=== PATIENT | male | born 1945 | race Caucasian/White ===

== ENCOUNTER 2016-12-28 12:34 | Outpatient (CLI) | payer MEDICARE | END 2016-12-28 12:35 | disposition home or self-care (01) | DX: E78.5 Hyperlipidemia, unspecified (principal); I10 Essential (primary) hypertension; M47.896 Other spondylosis, lumbar region ==

== ENCOUNTER 2017-10-08 14:09 | Outpatient (CLI) | payer MEDICARE, OTHER ==
--- NOTE | 2017-10-09 09:20 | XRAY Report ---
EXAM: THORACIC SPINE RADIOGRAPHY EXAM DATE: 10/08/2017 03:14 PM. CLINICAL HISTORY: BACK PAIN, LUMBAR THORACIC REGION. Chronic, increasing pain for several months. No known trauma. COMPARISON: No thoracic x-ray comparison. Abdomen pelvis CT 12/09/2012. TECHNIQUE: 2 views. FINDINGS: Alignment: Dextroconvexity curvature centered at T12-L2, without significant change. Bones: No fractures or bone lesions. Vertebral body heights are well-maintained. Disks: Minimal vertebral body spurring and very mild disk space narrowing within the mid thoracic spi ne. Soft Tissues: Right upper quadrant abdominal surgical clips.. The visualized lungs and cardiomediasti nal silhouette are normal. IMPRESSION: 1. No acute abnormality. 2. Minimal degenerative disease. 3. 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 [facility] Referring Provider Line: [phone] SITE ID: [id number]
== END 2017-10-08 14:10 | disposition home or self-care (01) ==
LOC: DI 14:09
PROVIDERS: ATTEND Family Medicine
DX: M54.5 Low back pain (principal); M54.6 Pain in thoracic spine
CPT/HCPCS: 72070

== ENCOUNTER 2018-05-20 08:00 | Outpatient (CLI) | payer MEDICARE, OTHER | END 2018-05-20 08:01 | LOC: LAB.WCP 08:00 | PROVIDERS: ATTEND Family Medicine | DX: K52.9 Noninfective gastroenteritis and colitis, unspecified (principal) | CPT/HCPCS: 83630; 87045; 87046 ==

== ENCOUNTER 2018-06-03 08:00 | Outpatient (CLI) | payer MEDICARE, OTHER | END 2018-06-03 08:01 | LOC: LAB.WCP 08:00 | PROVIDERS: ATTEND Family Medicine | DX: K52.9 Noninfective gastroenteritis and colitis, unspecified (principal) | CPT/HCPCS: 81599; 87045; 87046; 87493 ==

== ENCOUNTER 2019-07-11 07:00 | Outpatient (CLI) | payer MEDICARE, OTHER | END 2019-07-11 23:59 | disposition home or self-care (01) | LOC: LAB.R 07:00 | PROVIDERS: ATTEND Family Medicine | DX: Z79.891 Long term (current) use of opiate analgesic (principal) | CPT/HCPCS: 80361; 80374; 81599 ==

== ENCOUNTER 2024-02-20 08:00 | Outpatient (CLI) | payer MEDICARE, OTHER | END 2024-02-20 23:59 | disposition home or self-care (01) | LOC: LAB.R 08:00 | PROVIDERS: ATTEND Family Medicine | DX: R19.7 Diarrhea, unspecified (principal); R10.32 Left lower quadrant pain | CPT/HCPCS: 87045; 87046; 87329; 87427 ==

== ENCOUNTER 2024-02-20 08:30 | Outpatient (CLI) | payer MEDICARE, OTHER ==
[2024-02-20 12:01] LABS: BASOPHILS % (AUTO) 0.4 %; EOSINOPHILS # (AUTO) 0.1 10^3/uL (0.0-0.7); EOSINOPHILS % (AUTO) 1.2 %; HGB - HEMOGLOBIN 13.6 g/dL (14.0-18.0); LYMPHOCYTES # (AUTO) 1.4 10^3/uL (1.5-3.5); LYMPHOCYTES % (AUTO) 13.8 %; MEAN CORPUSCULAR HEMOGLOBIN 29.7 pg (27.0-31.0); MEAN CORPUSCULAR HGB CONC 32.4 g/dL (32.0-36.0); MEAN CORPUSCULAR VOLUME 91.7 fL (80.0-94.0); MEAN PLATELET VOLUME 9.6 fL (7.4-11.4); MONOCYTES # (AUTO) 1.5 10^3/uL (0.0-1.0); MONOCYTES % (AUTO) 14.6 %; NEUTROPHILS % (AUTO) 69.8 %; PLT - PLATELET COUNT 344 10^3/uL (130-450); RED BLOOD COUNT 4.58 10^6/uL (4.70-6.10); RED CELL DISTRIBUTION WIDTH 13.9 % (12.0-15.0)
[2024-02-20 12:21] LABS: ALBUMIN 4.1 g/dL (3.2-5.5); ALBUMIN/GLOBULIN RATIO 1.2 (1.0-2.2); BILIRUBIN,TOTAL 0.5 mg/dL (0.2-1.0); CALCIUM 9.6 mg/dL (8.5-10.3); CREATININE 1.2 mg/dL (0.6-1.3); TOTAL PROTEIN 7.5 g/dL (6.4-8.9)
== END 2024-02-20 08:45 | disposition home or self-care (01) ==
LOC: LAB.N 08:30
PROVIDERS: ATTEND Family Medicine
DX: R10.32 Left lower quadrant pain (principal); R19.7 Diarrhea, unspecified
CPT/HCPCS: 36415; 80053; 83690; 85025

== ENCOUNTER 2024-02-20 16:09 | Outpatient (CLI) | payer MEDICARE, OTHER ==
[2024-02-20] MEDS ORDERED: iohexoL-300 100 ML VIAL ONE (16:13)
[2024-02-20] MEDS ORDERED: DIATRIZOATE MEGLU/DIATRIZO SOD 30 ML BOTTLE PO ONE (16:14)
--- NOTE | 2024-02-20 18:27 | CT Report ---
PROCEDURE: Abdomen/Pelvis W INDICATIONS: ABD PAIN CONTRAST: [id number] 100ml TECHNIQUE: After the administration of intravenous contrast, a CT scan of the abdomen and pelvis was performed. Images were recorded and evaluated at appropriate window settings. Reformats: coronal and sagittal. F or radiation dose reduction, the following was used: automated exposure control, adjustment of mA and /or kV according to patient size. COMPARISON: 12/09/2012. FINDINGS: Image quality: Diagnostic. Lower chest: Unremarkable. Small hiatal hernia. Liver: Hepatic steatosis. Gallbladder and biliary tree: Surgically absent Spleen: No splenomegaly. Pancreas: No pancreatic ductal dilation. Adrenals: No adrenal nodule. Kidneys and ureters: No hydronephrosis. No renal cystic lesion which requires follow up. No solid mas s. Stomach, bowel and peritoneum: Diffusely thickened colonic wall involving the entire colon likely rel ated to colitis either infectious or inflammatory etiology. Normal appendix. Diverticulosis without a cute diverticulitis. No evidence for small bowel obstruction. Mild thickening of the rectum. Lymph nodes: No central or retroperitoneal adenopathy. Vessels: No infrarenal aortic aneurysm. PELVIS Reproductive organs: Unremarkable. Bladder: No abnormal wall thickening, accounting for underdistention. Pelvic lymph nodes: No pelvic adenopathy by size criteria. Bones: No aggressive osseous abnormality. Other: No significant ventral or inguinal hernia. Small fat-containing umbilical hernia. Acute inflam mation. IMPRESSION: Circumferential wall thickening of the entire colon and rectum likely related to proctocolitis either infectious or inflammatory in etiology. Diverticulosis without acute diverticulitis. Normal appendix. Other chronic findings as above. Reviewed by: Von Hammonds MD on 02/20/2024 6:26 PM PDT Approved by: Von Hammonds MD on 02/20/2024 6:26 PM PDT Station ID: [id number]
[2024-02-20] MEDS: iohexoL-300 100 ML VIAL IVP ONE (19:09)
[2024-02-20] MEDS: DIATRIZOATE MEGLU/DIATRIZO SOD 30 ML BOTTLE PO ONE (19:10)
== END 2024-02-20 16:10 | disposition home or self-care (01) ==
LOC: LAB 16:09
PROVIDERS: ATTEND Family Medicine
DX: R10.32 Left lower quadrant pain (principal); R93.3 Abnormal findings on diagnostic imaging of other parts of digestive tract; K57.90 Diverticulosis of intestine, part unspecified, without perforation or abscess without bleeding; R19.7 Diarrhea, unspecified
CPT/HCPCS: 36415; 74177; 80053; 83690; 85025; 87045; 87046; 87329; 87427; Q9963; Q9967

== ENCOUNTER 2024-02-24 08:00 | Outpatient (CLI) | payer MEDICARE, OTHER | END 2024-02-24 23:59 | disposition home or self-care (01) | LOC: LAB.N 08:00 | PROVIDERS: ATTEND Family Medicine | DX: R19.7 Diarrhea, unspecified (principal); R10.32 Left lower quadrant pain | CPT/HCPCS: 83993; 87493 ==